=== PATIENT | male | born 1980 | race Caucasian/White ===

== ENCOUNTER 2016-08-24 09:43 | Emergency (ER) | payer OTHER ==
[2016-08-24] MEDS ORDERED: CATAPRES TAB 0.2 MG PO ONE (09:48)
[2016-08-24 09:51] VITALS: BMI 42.7
[2016-08-24] MEDS ORDERED: CATAPRES TAB 0.2 MG ONE (09:52)
--- NOTE | 2016-08-24 09:52 | DR.EXTPAIN ---
HPI - Time seen Time seen: 09:43 - Complaint/Symptoms Chief Complaint Doctor Comments: Patient admits to falling from fishing boat on yesterday, when he landed he heard his left foot "pop". Last night and this morning the foot is painful and swollen. PMH - PMH Past Medical History: Yes ROS - Review of Systems Constitutional: No Symptoms Reported Eyes: No Symptoms Reported ENTM: No Symptoms Reported Respiratoy: No Symptoms Reported Cardiovascular: No Symptoms Reported Gastrointestinal/Abdominal: No Symptoms Reported Genitourinary: No Symptoms Reported Neurological: No Symptoms Reported Musculoskeletal: No Symptoms Reported Integumentary: No Symptoms Reported Hematologic/Lymphatic: No Symptoms Reported Endocrine: No Symptoms Reported Psychiatric: No Symptoms Reported All Other Systems: Reviewed and Negative PE - Vital Signs Vitals: Temperature 97.5 F Pulse Rate 100 Respiratory Rate 20 Blood Pressure 214/115 O2 Sat by Pulse Oximetry 97 - General Limitations: No Limitations General Appearance: Alert - Head Head Exam: Normal Inspection - Eyes Eye exam: Normal Appearance, PERRL, EOMI - ENT ENT Exam: Normal Exam - Neck Neck Exam: Normal Inspection, Full ROM - Chest Chest Inspection: Normal Inspection - Respiratory Respiratory Exam: Normal Lung Sounds Bilat Respiratory Exam: Bilateral Clear to Auscultation - Cardiovascular Cardiovascular Exam: Regular Rate - Abdominal Exam Abdominal Exam: Normal Inspection Abdominal Tenderness: negative: RUQ, RLQ, LUQ, LLQ, Epigastrium, Suprapubic, Diffuse, Mild, Moderate, Severe, Other - Extremities Extremities Exam: Tenderness (left dorsum of foot) - Upper Extremities Shoulder Exam: Normal Inspection Arm Exam: Normal Inspection, Full ROM Elbow Exam: Normal Inspection Forearm Exam: Normal Inspection Hand Exam: Normal Inspection Neuromotor Exam: Normal Exam Neurosensory Exam: Normal Exam Hand Tendon Exam: Flexor Digitorium Profundus (Location) Upper Ext. Vascular Exam: Capillary Refill - Lower Extremities Hip/Pelvis Exam: Normal Inspection Upper Leg Exam: Normal Inspection Knee Exam: Normal Inspection Lower Leg Exam: Normal Inspection Ankle Exam: Normal Inspection Foot/Toe Exam: Tenderness (left dorsum), Swelling Neurovascular/Tendon Exam: Normal Capillary Refill Gait Exam: Observed and Normal - Back Back Exam: Normal Inspection - Neurological Neurological Exam: Alert, CN II-XII Intact - Psychiatric Psychiatric Exam: Normal Affect - Skin Skin Exam: Warm, Dry ROR - XRAY XRAY Interpreted by: Radiologist (There is fracture of the base of the 5th toe metatarsal with minimal displacement. Enthesopathy seen at the calcaneus. 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 Osteal thickening along the 3rd toe metatarsal shaft) - Diagnosis Discharge Problem: Metatarsal stress fracture of left foot - Discharge Plan Condition: Stable - Follow ups/Referrals Follow ups/Referrals: SEE MARTINEZ [Primary Care Provider] - 3 days - Instructions
[2016-08-24] MEDS ORDERED: DEMEROL INJ IM ONE (09:54)
--- NOTE | 2016-08-24 10:09 | RAD ---
Left foot three views Indication: Left foot pain. Findings: There is fracture of the base of the 5th toe metatarsal, with minimal displacement. Enthes opathy seen at the calcaneus. 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 Osteal thickening along the 3rd toe metatarsal shaft could reflect sequela of old injury. If MTP degenerative change noted. Impression: Acute fracture of the base of the 5th toe metatarsal. Reported By:
[2016-08-24] MEDS ORDERED: DEMEROL INJ ONE (10:19)
[2016-08-24 10:48] VITALS: BP 200/102
== END 2016-08-24 10:58 | disposition home or self-care (01) ==
LOC: ER 09:57
DX: M84.375A Stress fracture, left foot, initial encounter for fracture (principal); W19.XXXA Unspecified fall, initial encounter; Y92.9 Unspecified place or not applicable
CPT/HCPCS: 73630; 96372; 99282; J2175

== ENCOUNTER 2017-08-05 22:18 | Emergency (ER) | payer OTHER ==
[2017-08-05 22:32] VITALS: BMI 43.9
[2017-08-06] MEDS ORDERED: TORADOL 60 MG VIAL IM ONE (00:07)
[2017-08-06] MEDS ORDERED: ADACEL TDaP IM ONE ×2 (00:07→00:20)
[2017-08-06] MEDS ORDERED: ROCEPHIN VIAL 1 GM IM ONE (00:07)
--- NOTE | 2017-08-06 00:11 | DR.GENAD ---
HPI - PCP Primary Care Physician: MICHELLE - Complaint/Symptoms Chief Complaint Doctors Comments: Patient states she was trying to break up a fight between two of his dogs and reached down and his dog bit him on the left arm and wrist with pain and bleeding. patient states the dog shots are up to date. States his last tetanus was 2011. States he is a patient of Dr. Swanson. He denies fever, chills, SOB, nausea or vomiting. States the pain is 4 of 10. States he can move his wirst and arm well without problems. Patient denies chest pain, SOB. States he took his blood pressure medicines at home before coming to the emergency room. Chief Complaint:: DOG BITE - Nurses notes reviewed Nurses Notes Review: Yes - Source History Provided: Patient - Mode of Arrival Mode of Arrival: Ambulatory - Timing Onset of Chief Complaint: 08/05/17 Came on: Suddenly - Duration Duration: Constant How lon Duration: Hours - Location Location: left wrist - Severity Severity: Mild - Modifying Factors Worsens:: movement Improves:: nothing PMH - PMH Past Medical History: Yes Past Medical History: Hypertension Past Surgical History: Yes Surgical History: Ortho Surgery - Family History History of Family Medical Conditions: No - Social History Does patient currently use any type of tobacco product: No Have you used tobacco products in the last 12 months: No Type of Tobacco Use: None Does any household member use tobacco: No Alcohol Use: Rarely Do you use any recreational Drugs:: No Lives With: Family Lives Where: Home - infectious screening In the last 2 months have you had wt loss of >10#?: NO Have you had fever, night sweats or hemotysis?: No Have you traveled outside the country in the last 6 months?: No Isolation: Standard ROS - Review of Systems Constitutional: No Symptoms Reported. negative: See HPI, Chills, Diaphoresis, Fever, Malaise, Weakness, Irritable, Fatigue, Loss of Appetite, Other Eyes: No Symptoms Reported. negative: See HPI, Eye Pain, Blurred Vision, Tearing, Discharge, Photophobia, Diplopia, Other ENTM: No Symptoms Reported. negative: See HPI, Ear Pain, Ear Discharge, Pulling on Ears, Hearing Loss, Nose Pain, Nose Discharge, Epistaxis, Nose Congestion, Mouth Pain, Mouth Swelling, Loose Teeth, Drooling, Throat Pain, Throat Swelling, Ear Foreign Body Respiratoy: No Symptoms Reported Cardiovascular: No Symptoms Reported Gastrointestinal/Abdominal: No Symptoms Reported. negative: See HPI, Abdominal Pain, Constipation, Diarrhea, Nausea, Vomiting, Food Intolerance, Other Genitourinary: No Symptoms Reported. negative: See HPI, Discharge, Dysuria, Frequency, Hematuria, Pain, Bleeding, Other Neurological: No Symptoms Reported Musculoskeletal: No Symptoms Reported, Left, Arm, Wrist Integumentary: No Symptoms Reported, Wound (small laceration left lower arm 1 cm.) Hematologic/Lymphatic: No Symptoms Reported. negative: See HPI, Anemia, Blood Clots, Easy Bleeding, Easy Bruising, Swollen Glands, Lymphadenopathy, Other Endocrine: No Symptoms Reported Psychiatric: No Symptoms Reported. negative: See HPI, Anxiety, Depression, Hallucinations, Excessive crying, Suicidal, Other PE - Vital Signs Vitals: Temperature 98.3 F Pulse Rate 106 Respiratory Rate 12 Blood Pressure [Right Radial 200/102 Artery] Blood Pressure 234/127 O2 Sat by Pulse Oximetry 96 - General Limitations: No Limitations General Appearance: Alert, In Distress (mild) - Head Head Exam: Normal Inspection, Atraumatic, Normocephalic - Eyes Eye exam: Normal Appearance, PERRL, EOMI. negative: Scleral Icterus, Conjunctival Injection, Nystagmus, Miosis, Mydrasis, Periorbital Swelling, Periorbital Tenderness, Other - ENT ENT Exam: Normal Exam, Normal Oropharynx, Normal External Ear Exam, Mucous Membranes Moist, TM's Normal Bilaterally External Ear Exam: Normal External Inspection TM/Canal Exam: Bilateral Normal Nose Exam: Normal Nose Exam Mouth Exam: Normal Inspection Throat Exam: Normal Inspection - Neck Neck Exam: Normal Inspection, Full ROM, Trachea Midline - Chest Chest Inspection: Normal Inspection, Symmetric Chest Wall Rise - Respiratory Respiratory Exam: Normal Lung Sounds Bilat. negative: Accessory Muscle Use, Chest Wall Tenderness, Prolonged Expiratory Phase, Respiratory Distress, Stridor , Other Respiratory Exam: Bilateral Clear to Auscultation - Cardiovascular Cardiovascular Exam: Regular Rate, Normal Rhythm, Normal Heart Sounds - Abdominal Exam Abdominal Exam: Normal Inspection, Normal Bowel Sounds, Soft. negative: Distention, Tenderness, Guarding, Rebound, Rigidity, Dimnished Bowel Sounds, Hyperactive Bowel Sounds, Hypoactive Bowel Sounds, Organomegaly, Trauma, Incision, Ascites, Mass, Bruit, Pulsatile Mass, Hernia, Other Abdominal Tenderness: negative: RUQ, RLQ, LUQ, LLQ, Epigastrium, Suprapubic, Diffuse, Mild, Moderate, Severe, Other - Extremities Extremities Exam: Normal Inspection, Full ROM, Tenderness (left wrist with laceration 1 cm dorsal arm and small laceration inner wrist; small puncture wounds left arm), Normal Capillary Refill - Back Back Exam: Normal Inspection, Full ROM. negative: Tenderness, (R) CVA Tenderness, (L) CVA Tenderness, Muscle Spasm, Paraspinal Tenderness, Vertebral Tenderness, Rashes, (R) Sciatic Notch Tenderness, (L) Sciatic Notch Tendern, (R ) Straight Leg Raise, (L) Straight Leg Raise, Other - Neurologic Neurological Exam: Alert, Oriented X3, CN II-XII Intact, Normal Gait, Reflexes Normal - Psychiatric Psychiatric Exam: Normal Affect, Normal Mood - Skin Skin Exam: Warm, Dry, Intact, Normal Color - Diagnosis Discharge Problem: laceration left lower arm, puncture wound left arm, Essential hypertension Dog bite of arm Qualifiers: Encounter type: initial encounter - Discharge Plan Disposition: HOME, SELF-CARE Condition: Stable Prescriptions: Acetaminophen/Codeine Tab [TYLENOL w/CODEINE #3 (300 MG/30 MG) *] 1 tab PO Q4- 6H PRN #24 tab PRN Reason: Pain Amoxicillin & Pot Clavulanate [AUGMENTIN TAB 875 mg/125 mg *] 1 tab PO BID #20 tab - Follow ups/Referrals Follow ups/Referrals: SEE MARTINEZ [Primary Care Provider] - 3 days JERRI FOSTER [STAFF PHYSICIAN] - 3 days - Instructions Instructions: Animal Bite, [id number], Wound Care, Adult, Hypertension, Easy- to-Read
[2017-08-06] MEDS ORDERED: CATAPRES TAB 0.2 MG ONE (00:20)
[2017-08-06] MEDS ORDERED: CATAPRES TAB 0.2 MG PO ONE (00:20)
[2017-08-06] MEDS ORDERED: ROCEPHIN VIAL 1 GM ONE (00:20)
[2017-08-06] MEDS ORDERED: TORADOL 60 MG VIAL ONE (00:20)
[2017-08-06 01:05] VITALS: BP 168/89
== END 2017-08-06 01:05 | disposition home or self-care (01) ==
LOC: ER 22:18
DX: S51.852A Open bite of left forearm, initial encounter (principal); S51.812A Laceration without foreign body of left forearm, initial encounter; I10 Essential (primary) hypertension; W54.0XXA Bitten by dog, initial encounter; Y92.9 Unspecified place or not applicable
CPT/HCPCS: 90471; 96372; 99282; J0696; J1885